=== PATIENT | male | born 1995 | race Two or more races ===

== ENCOUNTER 2021-05-06 13:10 | Emergency (ER) | payer OTHER ==
[~2021-05-06 13:10] MED LIST: BACTRIM DS TAB1 EACH PO; CYCLOBENZAPRINE10 MG PO; IBUPROFEN800 MG PO; KEFLEX250 MG PO; LOTRISONE CREAM15 GM TOP
== END 2021-05-06 14:35 | disposition home or self-care (01) ==
LOC: FER 13:10
DX: S63.502A Unspecified sprain of left wrist, initial encounter (principal); W19.XXXA Unspecified fall, initial encounter; Y92.009 Unspecified place in unspecified non-institutional (private) residence as the place of occurrence of the external cause
CPT/HCPCS: 73100